=== PATIENT | male | born 1955 | race Caucasian/White ===

== ENCOUNTER → 2025-04-12 | Outpatient (CLI) | payer MEDICARE ==
[2025-04-12 15:24] LABS: Anion Gap 10.40 mmol/L (4.00-12.00); BUN/Creat Ratio 22.00 Ratio (12.00-20.00); Blood Urea Nitrogen 19.8 mg/dL (9.0-27.0); Calcium 9.1 mg/dL (8.7-10.3); Carbon Dioxide 22.6 mmol/L (21.6-31.8); Chloride 108 mmol/L (96-109); Glucose 95 mg/dL (70-110); Potassium 4.4 mmol/L (3.5-5.5); Sodium 141 mmol/L (135-145)
[2025-04-12 16:01] LABS: HCT 44.0 % (39.6-50.0); HGB 14.3 g/dL (13.0-17.0); MCH 31.4 pg (27.0-32.0); MCHC 32.5 g/dL (32.0-37.0); MCV 96.5 FL (80.0-97.0); NRBC Per 100 WBC 0 X 10*3/uL (0.00-0.01); Platelet Count 218 X 10*3/uL (140-440); RBC 4.56 X 10*6/uL (4.40-5.60); RDW 12.8 % (11.5-14.5); WBC 7.14 X 10*3/uL (4.50-10.00)
[2025-04-12 16:02] LABS: Basophils # (A) 0.03 X 10*3/uL (0.00-0.10); Basophils % (A) 0.4 %; Eosinophils # (A) 0.13 X 10*3/uL (0.04-0.35); Eosinophils % (A) 1.8 %; Immature Grans, Automated 0.60 %; Lymphocytes # (A) 1.33 X 10*3/uL (0.90-5.00); Lymphocytes % (A) 18.6 %; Monocytes # (A) 0.69 X 10*3/uL (0.20-1.00); Monocytes % (A) 9.7 %; Neutrophils # (A) 4.92 X 10*3/uL (1.80-7.70); Neutrophils % (A) 68.9 %
== END | disposition home or self-care (01) ==
LOC: LABPAT 12:40
PROVIDERS: ATTEND Urology
DX: Z01.812 Encounter for preprocedural laboratory examination (principal); N40.1 Benign prostatic hyperplasia with lower urinary tract symptoms
CPT/HCPCS: 80048; 85025; 87086

== ENCOUNTER → 2025-04-19 | Outpatient (CLI) | payer MEDICARE ==
[2025-04-30 11:54] LABS: EKG EKG PERFORMED
== END | disposition home or self-care (01) ==
LOC: LABPAT 15:07
PROVIDERS: ATTEND Urology
DX: N40.1 Benign prostatic hyperplasia with lower urinary tract symptoms (principal)
CPT/HCPCS: 93005

== ENCOUNTER 2025-04-22 09:05 | Day surgery (SDC) | payer MEDICARE ==
[2025-04-19 11:27] VITALS: BMI 27.8
--- NOTE | 2025-04-22 08:36 | P.GSHP ---
History of Present Illness H&P Date: 04/22/25 Chief Complaint: Weak urinary stream The patient is a 69-year-old white male with obstructive voiding symptoms. Specifically, he reports a weak urinary stream, intermittency, occasional straining, and increased urinary frequency. He took tamsulosin from [id number]. This was changed to alfuzosin, but he continued to empty his bladder incompletely. When seen in January 2025, the postvoid residual was 453 cc. Digital rectal examination revealed the prostate to be moderately enlarged but smooth. Cystoscopy showed trilobar prostatic enlargement. The bladder was noted to be trabeculated with cellules. He has been advised to undergo a TURP and comes for this reason. - Genitourinary (Male) Genitourinary: Reports as per HPI Past Medical History Past Medical History: Prostate Disorder Additional Past Medical History / Comment(s): Enlarged prostate. "Poor urine flow for the past year." History of Any Multi-Drug Resistant Organisms: None Reported Additional Past Surgical History / Comment(s): Cyst removed from rt side of "belly", Cyst removed from Thyroid glad. Colonoscopy. Past Anesthesia/Blood Transfusion Reactions: No Reported Reaction, Motion Sickness Additional Past Anesthesia/Blood Transfusion Reaction / Comment(s): No hx of blood transfusion to date. Smoking Status: Never smoker - Past Family History Mother Family Medical History: Cancer Additional Family Medical History / Comment(s): Ovarian cancer. Brother(s) Family Medical History: Cancer Additional Family Medical History / Comment(s): Lung Medications and Allergies Home Medications Medication Instructions Recorded Confirmed Type Alfuzosin HCl [Alfuzosin HCl ER] 10 mg PO HS 04/19/25 04/19/25 History Coq10(Unknown Dose) 1 dose PO QAM 04/19/25 04/19/25 History D3/Potassium (Unknown Dose) 1 dose PO QAM 04/19/25 04/19/25 History Flaxseed Oil (Unknown Dose) 1 dose PO QAM 04/19/25 04/19/25 History Ibuprofen(Unknown Dose) 1 dose PO QAM 04/19/25 04/19/25 History Vitamin C(Unknown Dose) 1 dose PO QAM 04/19/25 04/19/25 History Zinc (Unknown Dose) 1 dose PO QAM 04/19/25 04/19/25 History Zyflamend Prostate 1 dose PO QAM 04/19/25 04/19/25 History Psyyllium (Unknown Dose) 1 dose PO QAM 04/20/25 04/20/25 History Allergies Allergy/AdvReac Type Severity Reaction Status Date / Time No Known Allergies Allergy Verified 04/19/25 11:05 Surgical - Exam - General well developed, well nourished, no distress - Respiratory normal respiratory effort - Genitourinary normal penis with no external lesions, testicles non-tender - Rectum Rectum: normal sphincter tone, no masses, other (Prostate moderately enlarged but smooth) - Psychiatric oriented to time, oriented to person, oriented to place, speech is normal, memory intact Assessment and Plan (1) Benign prostatic hyperplasia with lower urinary tract symptoms Status: Acute Code(s): N40.1 - BENIGN PROSTATIC HYPERPLASIA WITH LOWER URINARY TRACT SYMP SNOMED Code(s): 305641666 Plan: Cystoscopy, bipolar transurethral resection of prostate (TURP). The procedure has been reviewed in detail with the patient and his . They have been made aware of potential risks, which include anesthesia, bleeding, infection, vesical neck contracture, urethral stricture, urinary incontinence, erectile dysfunction, and retrograde ejaculation. They are also aware of the possibility that occult prostate cancer will be identified, and that further treatment may be necessary.
[~2025-04-22 09:05] MED LIST: HYDROmorphone 0.5 MG/0.5 ML SYRINGE IVP PRN
[2025-04-22] MEDS: IV FLUID CONTINUATION 1,000 ML IV ONE (10:07)
[2025-04-22] MEDS: DEXAMETHASONE SOD PHOSPHATE 4 MG/ML 1 ML VIAL IV ONE (10:08)
[2025-04-22] MEDS: ONDANSETRON 4 MG/2 ML VIAL IVP ONE (10:08)
[2025-04-22] MEDS: LACTATED RINGERS 1,000 ML IV SCH (10:08)
[2025-04-22] MEDS ORDERED: MIDAZOLAM 2 MG/2 ML VIAL ONE (11:23)
[2025-04-22] MEDS ORDERED: HYDROmorphone (PF) 1 MG/ML ONE (11:23)
[2025-04-22] MEDS ORDERED: ROCURONIUM 10 MG/ML (5 ML VIAL) IV ONE (11:23)
[2025-04-22] MEDS ORDERED: LIDOCAINE 1% INJ 10MG/ML (20 ML MDV) ONE (11:23)
[2025-04-22] MEDS ORDERED: PROPOFOL 10 MG/ML 20 ML VIAL IV ONE (11:23)
[2025-04-22] MEDS ORDERED: fentaNYL (PF) 50 MCG/ML 2 ML AMP ONE (11:23)
[2025-04-22] MEDS: LACTATED RINGERS 1,000 ML IV ONE (13:00)
[2025-04-22 15:05] VITALS: TEMP 97.4
[2025-04-22 16:58] VITALS: RESP 18
[2025-04-22 17:45] VITALS: BP 147/85; PULSE 67
--- NOTE | 2025-04-22 18:19 | P.OP ---
Date of Procedure: 04/22/25 Preoperative Diagnosis: BPH with obstruction Postoperative Diagnosis: Same Procedure(s) Performed: Cystoscopy, bipolar transurethral resection of prostate (TURP) Anesthesia: CHRISTIANO Surgeon: Markus Louis Estimated Blood Loss (ml): 50 IV fluids (ml): 1,300 Pathology: other (Prostate chips) Condition: stable Disposition: PACU Indications for Procedure: The patient is a 69-year-old white male with obstructive voiding symptoms. Specifically, he reports a weak urinary stream, intermittency, occasional straining, and increased urinary frequency. He took tamsulosin from [id number]. This was changed to alfuzosin, but he continued to empty his bladder incom pletely. When seen in January 2025, the postvoid residual was 453 cc. Digital rectal examination revealed the prostate to be moderately enlarged but smooth. Cystoscopy showed trilobar prostatic enlargement. The bladder was noted to be trabeculated with cellules. He has been advised to undergo a TURP and comes for this reason. Operative Findings: Trilobar BPH, complete occlusion. Description of Procedure: The patient was taken in the operating room and placed in the dorsolithotomy position. The external genitalia was prepped and draped sterilely. The 26- Fr[employer] Olympus resectoscope sheath was introduced into the bladder. The bladder was inspected. Both ureteral orifices were of normal anatomic location and configuration, and clear urine effluxed from both. No tumors or foreign bodies were seen. Examination of the prostate revealed complete obstruction with a trilobar configuration. The median lobe was very prominent and extended intravesically. Using the bipolar cutting loop, the median lobe was resected, along with the floor of the prostate, up to the verumontanum. The lateral lobes were then resected down to the surgical capsule. Next, the remaining anterior tissue was resected. The residual apical tissue was then carefully resected, with care taken to avoid injury to the external urinary sphincter. The resectio n was carried down to the surgical capsule in all 4 quadrants. The prostatic fossa was then carefully examined, and any areas of bleeding were controlled with electrocautery. Excellent hemostasis was attained. The resectoscope was withdrawn into the bulbous urethra. The external urinary sphincter remained intact. The prostatic fossa was open. The [employer] evacuator was used to remove all prostate chips from the bladder. These were saved and sent for pathologic examination. The resectoscope was removed, and a 20 Frisian Camargo catheter was placed. The return was essentially clear. The patient tolerated the procedure well was taken to the recovery room in stable condition.
== END 2025-04-22 17:42 | disposition home or self-care (01) ==
LOC: OR 09:05
PROVIDERS: ATTEND Urology
DX: N40.1 Benign prostatic hyperplasia with lower urinary tract symptoms (principal); N13.8 Other obstructive and reflux uropathy; N41.1 Chronic prostatitis; N41.0 Acute prostatitis
CPT/HCPCS: 52601; 88305; J2250; J1100; J0690; J2405; J2003; J3010; J1171; J2704